=== PATIENT | male | born 1970 | race Caucasian/White ===

== ENCOUNTER 2023-02-07 09:15 | Day surgery (SDC) | payer BC ==
--- NOTE | 2023-02-06 14:56 | HP ---
DATE OF SURGERY: 02/07/2023 HISTORY OF PRESENT ILLNESS: The patient is a 52-year-old male who presents with cholelithiasis. He is also complaining about some reflux and epigastric pain, had this pain for about a year but he said is worse with bending over. Denies nausea, vomiting or diarrhea. No triggers. He is on pantoprazole and states that it does help with heartburn but he says he has right upper quadrant pain that is different and tends to be bad. It also looks like he has done a Cologuard at some point here recently that was negative. PAST MEDICAL HISTORY: Gastroesophageal reflux disease. PAST SURGICAL HISTORY: Knee arthroscopy. Foreign body from finger removed. Testicular nodule removed. ALLERGIES: NKDA. MEDICATIONS: Zinc, fish oil, vitamin C, vitamin B12, pantoprazole, meloxicam, Acyclovir. FAMILY HISTORY: Lung cancer. SOCIAL HISTORY: Occasional alcohol. REVIEW OF SYSTEMS: CONSTITUTIONAL: Denies fever or chills. CHEST: Denies shortness of breath. CVS: Denies chest pain. ABDOMEN: Reports right upper quadrant pain, epigastric pain. PHYSICAL EXAMINATION: GENERAL: No acute distress. CHEST: Nonlabored. No shortness of breath. CVS: Regular rate and rhythm. ABDOMEN: Soft. IMPRESSION: Cholelithiasis, reflux and epigastric pain. PLAN: EGD and laparoscopic cholecystectomy with Dr. Cedric Hill. As dictated by Tatiana Holden NP.
[~2023-02-07 09:15] MED LIST: Sensorcaine 0.25% 10 ML ONE
[2023-02-07] MEDS ORDERED: Lactated Ringers 1,000 ML IV ONE (10:14)
[2023-02-07] MEDS ORDERED: Xylocaine-Mpf 2% 5 Ml Vial ONE (10:23)
[2023-02-07] MEDS ORDERED: DIPRIVAN 200 MG/20 ML IV ONE (10:23)
[2023-02-07] MEDS ORDERED: Decadron 4 MG INJ ONE (10:23)
[2023-02-07] MEDS ORDERED: Zofran 4 MG/2 ML VIAL ONE (10:23)
[2023-02-07] MEDS ORDERED: SUBLIMAZE 100 MCG/2 ML ONE ×2 (10:24→12:42)
[2023-02-07] MEDS ORDERED: Zemuron 100 MG/10 ML ONE (10:26)
[2023-02-07] MEDS ORDERED: MEFOXIN 2 GM PREMIX** 2 GM/50 ML ML IV ONE (10:48)
[2023-02-07] MEDS ORDERED: Lactated Ringers 1,000 ML IV SCH (11:00)
[2023-02-07] MEDS ORDERED: MEFOXIN 2 GM PREMIX** 2 GM/50 ML ML IV SCH (11:00)
[2023-02-07] MEDS ORDERED: BRIDION 200MG/2ML IV ONE ×2 (11:55→12:16)
[2023-02-07] MEDS ORDERED: NORCO 5/325 MG PO PRN (13:23)
--- NOTE | 2023-02-07 13:42 | OP ---
SURGERY DATE/TIME: 02/07/2023 1128 PREOPERATIVE DIAGNOSES: 1) Symptomatic cholelithiasis. 2) Upper abdominal pain. POSTOPERATIVE DIAGNOSES: 1) Cholesterolosis. 2) Cholelithiasis. 3) Grade 3 over 4 gastroesophageal reflux disease. PROCEDURES: 1) Laparoscopic cholecystectomy. 2) EGD. SURGEON: Cedric Hill M.D. ANESTHESIA: General. COMPLICATIONS: None. ESTIMATED BLOOD LOSS: None. DRAINS: None. CONDITION: Stable. INDICATION: A patient requiring cholecystectomy and evaluation of the gastroesophageal junction. DESCRIPTION OF PROCEDURE AND FINDINGS: Taken to surgery. General anesthetic, routine prep and drape. Time out performed. Veress needle inserted. Opening pressure of 1, insufflating pressure 14. Four - 5's. Good visualization. Gallbladder was long about 7 inches. Cystic duct defined. Cystic artery defined. Both structures triply clipped and transected. Clips noted across and well approximated. Gallbladder rolled out of gallbladder fossa. The gallbladder delivered through epigastric port with minimal widening. Hole closure device was needed. Field was dry. There were no other findings. On top surface of the abdomen tuere was one adhesion against the cecum. Small bowel satisfactory. Left upper quadrant satisfactory. Hole closure device site was satisfactory. CO2 was exsufflated. Skin closed with 4-0 Vicryl and Steri-Strips. EGD performed. Esophagus normal down to gastroesophageal junction. Rim of esophagitis grade 3 over 4. No hiatal hernia. Fundus, body and antrum normal. Pylorus normal. Duodenal bulb normal. Second portion normal. Scope withdrawn. The patient tolerated the procedure satisfactorily. Findings discussed with the family in the waiting room.
[2023-02-07 14:06] VITALS: BP 142/87; PULSE 71; O2SAT 96
== END 2023-02-07 13:55 | disposition home or self-care (01) ==
LOC: SDC 09:15
PROVIDERS: ATTEND Surgery
DX: K80.20 Calculus of gallbladder without cholecystitis without obstruction (principal); R10.10 Upper abdominal pain, unspecified; K21.9 Gastro-esophageal reflux disease without esophagitis
CPT/HCPCS: J0694; J1100; J2405; J2704; J3010; A9270-GY